=== PATIENT | male | born 1985 | race Caucasian/White ===

== ENCOUNTER → 2018-03-11 | Outpatient (CLI) | END | disposition home or self-care (01) ==

== ENCOUNTER 2018-03-16 08:03 | Day surgery (SDC) | END 2018-03-16 13:00 | disposition home or self-care (01) ==

== ENCOUNTER → 2019-02-21 | Outpatient (CLI) | payer BC | END | disposition home or self-care (01) | LOC: LAB 09:15 | PROVIDERS: ATTEND Internal Medicine | DX: E78.5 Hyperlipidemia, unspecified (principal); R73.03 Prediabetes; E03.9 Hypothyroidism, unspecified | CPT/HCPCS: 80053; 80061; 81003; 83036; 84436; 84443; 85025 ==

== ENCOUNTER → 2019-09-18 | Outpatient (CLI) | payer BC | END | disposition home or self-care (01) | LOC: LAB 09:59 | PROVIDERS: ATTEND Internal Medicine | DX: N20.0 Calculus of kidney (principal); R73.03 Prediabetes; E78.5 Hyperlipidemia, unspecified | CPT/HCPCS: 74018; 80053; 80061; 81003; 83036; 85025 ==